=== PATIENT | female | born 1980 | race Caucasian/White ===

== ENCOUNTER 2018-02-16 14:37 | Emergency (ER) | payer MEDICAID ==
[~2018-02-16] VITALS: Ht 154.9 cm; Wt 61.7 kg
[2018-02-16 14:49] VITALS: Ht 154.9 cm; Wt 61.7 kg
[2018-02-16 17:35] LABS: CALCIUM 8.6 mg/dL (8.5-10.1); CARBON DIOXIDE 31.7 mmol/L (21-32); CHLORIDE SERUM 100 mmol/L (98-107); CREATININE SERUM 0.9 mg/dL (0.6-1.0); GFR1 > 60 mL/min; GLUCOSE SERUM 70 mg/dL (74-106); POTASSIUM SERUM 3.7 mmol/L (3.5-5.1); SODIUM SERUM 138 mmol/L (136-145)
[2018-02-16 17:42] LABS: ALBUMIN 4.3 g/dL (3.4-5.0); ALKALINE PHOSPHATASE 76 U/L (46-116); ALT/SGPT 17 U/L (14-59); AST/SGOT 27 U/L (15-37); BILIRUBIN TOTAL 0.32 mg/dL (0.20-1.00); TOTAL PROTEIN, SERUM 8.2 g/dL (6.4-8.2)
[2018-02-16 17:50] LABS: FREE T4 0.42 ng/dL (0.76-1.46); T3 TOTAL 0.36 ng/mL
[2018-02-16 17:52] LABS: BASOPHIL % 0.3 % (0-2); PLATELET COUNT 272 x10^3mcL (130-400)
[2018-02-16 18:07] LABS: RED CELL DISTRIBUTION WIDTH 14.9 % (11.5-14.5)
[2018-02-16 18:40] LABS: FREE THYROXINE INDEX 0.9 ug/dL (1.4-4.5); T4(THYROXINE) 2.7 ug/dL (4.7-13.3)
[2018-02-16 20:28] VITALS: BP 104/65
== END 2018-02-16 20:28 | disposition home or self-care (01) ==
LOC: ED 14:37
PROVIDERS: Specialist
DX: R53.1 Weakness (principal); E03.9 Hypothyroidism, unspecified; R51 Headache; R11.0 Nausea; M79.10 Myalgia, unspecified site
CPT/HCPCS: 36415; 84439; 87804; J0780; J1885